=== PATIENT | female | born 1970 | race Caucasian/White ===

== ENCOUNTER 2020-02-08 09:50 | Observation (INO) ==
[2020-02-08] MEDS ORDERED: Aspirin 81 MG TAB.CHEW PO ONE (09:58)
[2020-02-08] MEDS ORDERED: Nitroglycerin 0.4 MG TAB.SUBL SL PRN (09:58)
[2020-02-08 10:15] LABS: Immature Granulocytes % 0.2 % (0-4)
[2020-02-08 10:17] LABS: Basophils # 0.1 K/mcL (0.0-0.2); Basophils % 1.6 %; Eosinophils # 0.3 K/mcL (0.0-0.6); Eosinophils % 5.6 %; Hematocrit 35.9 % (35.3-44.9); Hemoglobin 10.3 g/dL (11.5-15.4); Lymphocytes # 2.5 K/mcL (0.6-4.6); Lymphocytes % 41.3 %; Mean Corpuscular HGB Conc 28.7 g/dL (31.6-35.5); Mean Corpuscular Hemoglobin 20.6 pg (28.0-33.3); Mean Corpuscular Volume 71.7 fL (83.0-100.0); Mean Platelet Volume 9.4 fL (9.4-12.4); Monocytes # 0.7 K/mcL (0.0-1.3); Monocytes % 11.5 %; Neutrophils # 2.4 K/mcL (1.6-8.9); Platelet Count 404 K/mcL (140-400); Red Blood Count 5.01 M/mcL (3.82-4.97); Segmented Neutrophils % 39.8 %; White Blood Count 6.1 K/mcL (4.3-11.1)
[2020-02-08 10:28] LABS: Hypochromasia Present (Not Present); Platelet Estimate Normal (Normal); Prothrombin Time 11.8 Seconds (9.4-12.1)
[2020-02-08 10:31] LABS: Activated Partial Thrombo Time 28.2 Seconds (26.0-36.0)
[2020-02-08 10:37] LABS: BUN/Creatinine Ratio 12 (6-26); Blood Urea Nitrogen 10 mg/dL (6-20); Calcium 9.8 mg/dL (8.6-10.3); Carbon Dioxide 27 mEq/L (23-29); Chloride 102 mEq/L (98-107); Glucose 91 mg/dL (70-105); Osmolality,Calculated 279 (280-300); Potassium 4.1 mEq/L (3.5-5.1); Sodium 135 mEq/L (136-145); Troponin I < 0.03 ng/mL (< 0.04); eGFR For African Americans > 60 (> 60); eGFR For Non-African Americans > 60 (> 60)
[2020-02-08] MEDS ORDERED: Naloxone 0.4 MG/ML INJ IVP PRN (12:30)
[2020-02-08] MEDS ORDERED: Acetaminophen 325 MG TABLET PO PRN (12:30)
[2020-02-08] MEDS ORDERED: Perflutren Lipid Microsphere 1.3 ML in 0.9 % Sodium Chloride 8.7 ML IVP PRN (12:32)
[2020-02-08 12:38] LABS: Adenovirus Not Detected (Not Detect); Coronavirus 229E Not Detected (Not Detect); Coronavirus HKU1 Not Detected (Not Detect); Coronavirus NL63 Not Detected (Not Detect); Coronavirus OC43 Not Detected (Not Detect)
[2020-02-08 12:39] LABS: Bordetella Pertussis Not Detected (Not Detect); Chlamydophila pneumoniae Not Detected (Not Detect); Human Metapneumovirus Not Detected (Not Detect); Human Rhinovirus/Enterovirus Not Detected (Not Detect); Influenza A Subtype 2009 H1 Not Detected (Not Detect); Influenza B Not Detected (Not Detect); Mycoplasma pneumoniae Not Detected (Not Detect); Parainfluenza Virus 1 Not Detected (Not Detect); Parainfluenza Virus 2 Not Detected (Not Detect); Parainfluenza Virus 3 Not Detected (Not Detect); Parainfluenza Virus 4 Not Detected (Not Detect); Respiratory Syncytial Virus Not Detected (Not Detect)
[2020-02-08] MEDS: Nicotine 14 MG PATCH.TD24 TD SCH (15:17)
[2020-02-09 01:58] LABS: Immature Granulocytes % 0.3 % (0-4)
[2020-02-09 02:00] LABS: Basophils # 0.1 K/mcL (0.0-0.2); Eosinophils # 0.3 K/mcL (0.0-0.6); Eosinophils % 4.4 %; Hematocrit 33.8 % (35.3-44.9); Hemoglobin 9.4 g/dL (11.5-15.4); Lymphocytes # 2.3 K/mcL (0.6-4.6); Lymphocytes % 34.2 %; Mean Corpuscular HGB Conc 27.8 g/dL (31.6-35.5); Mean Corpuscular Hemoglobin 19.6 pg (28.0-33.3); Mean Corpuscular Volume 70.6 fL (83.0-100.0); Mean Platelet Volume 9.6 fL (9.4-12.4); Neutrophils # 3.3 K/mcL (1.6-8.9); Platelet Count 379 K/mcL (140-400); Red Blood Count 4.79 M/mcL (3.82-4.97); Red Cell Distribution Width 17.7 % (11.5-14.5); Segmented Neutrophils % 49.1 %; White Blood Count 6.8 K/mcL (4.3-11.1)
[2020-02-09 02:08] LABS: Monocytes # 0.8 K/mcL (0.0-1.3)
[2020-02-09 02:24] LABS: % Iron Saturation 3 % (15-50); BUN/Creatinine Ratio 16 (6-26); Blood Urea Nitrogen 14 mg/dL (6-20); Calcium 8.9 mg/dL (8.6-10.3); Carbon Dioxide 25 mEq/L (23-29); Chloride 103 mEq/L (98-107); Chol/HDL Ratio 3.4 (0-4.9); Cholesterol 169 mg/dL (< 200); Glucose 104 mg/dL (70-105); HDL Cholesterol 49 mg/dL (40-59); Iron 19 mcg/dL (50-170); LDL Cholesterol,Calculated 101 mg/dL (< 100); Magnesium 1.9 mg/dL (1.6-2.6); Osmolality,Calculated 283 (280-300); Potassium 3.9 mEq/L (3.5-5.1); Sodium 136 mEq/L (136-145); Transferrin 405 mg/dL (203-362); Triglycerides 93 mg/dL (< 150); eGFR For African Americans > 60 (> 60); eGFR For Non-African Americans > 60 (> 60)
[2020-02-09 02:36] LABS: Hypochromasia Present (Not Present); Platelet Estimate Normal (Normal)
[2020-02-09 02:43] LABS: Folate 6.7 ng/mL (3.0-16.0)
[2020-02-09 02:59] LABS: Ferritin < 8 ng/mL (10-120)
[2020-02-09] MEDS ORDERED: Regadenoson 0.4 MG/5 ML SYRINGE IVP ONE (06:29)
[2020-02-09] MEDS ORDERED: Levothyroxine 25 MCG TABLET PO SCH (06:30)
[2020-02-09] MEDS ORDERED: Venlafaxine XR (24 HR) 75 MG CAP.ER.24H PO SCH (09:00)
[2020-02-09 09:33] LABS: Estimated Average Glucose 128 mg/dl
[2020-02-09] MEDS: Nicotine 14 MG PATCH.TD24 TD SCH (09:44)
[2020-02-09 11:10] VITALS: BP 118/75
== END 2020-02-09 16:08 | disposition home or self-care (01) ==
LOC: EMEROOARM 09:50 → 3BNU 09:50 → SUATTDRO 13:42 → 3BNU 15:02
PROVIDERS: ADMIT Student in an Organized Health Care Education/Training Program; ATTEND Student in an Organized Health Care Education/Training Program